=== PATIENT | female | born 1950 | race Two or more races ===

== ENCOUNTER 2025-04-24 22:03 | Emergency (ER) | payer OTHER ==
[~2025-04-24] VITALS: Ht 162.6 cm; Wt 50.0 kg
--- NOTE | 2025-04-24 22:21 | ED.PDOC ---
GI ASSESSMENT HPI Comments [facility] since then, she has not been compliant with her pain control, but reports abdominal pain. pt was seen at [facility] yesterday and told everything was ok. she has been screaming at her home all day and calling 911. daughter is requesting for placement i called the daughter, Celina Montero at [phone] who informs me [facility] at [place] last week, on 04/10, with final result showing no cancer. she then went to [facility] twice, then [facility] and all said nothing was found, she reports pt is out of gabapentin she has been complain of pain, she now feelsa she cant care for her and is requesting placement Time Seen by MD: 22:04 Reviewed Notes: Nurses Notes, Turner And Former Automatic Notes, Medications, Allergies Allergies: Coded Allergies: NO KNOWN ALLERGIES (Unverified , 04/24/25) Information Source: Patient, Relative (Child), Emergency Med Personnel Mode of Arrival: EMS Timing: Days Duration: Since onset Quality: Cramping Vomitus: None Past Medical History PAST MEDICAL HISTORY: PUD Past Medical History (Other): neuropathy, bipolar, possible uterine cancer Surgical History: Hysterectomy KILN FEEDER History: No Pertinent KILN FEEDER History Family History Family History: Reviewed,noncontributory to illness, No family hx of Cancer, No family hx of DM, No family hx of Heart ayaka, No family hx of HTN, No family hx ofKidney ayaka, No family hx of Liver ayaka, No family hx of Lung ayaka, No family hx of Stroke Social History Smoker: Non-Smoker Alcohol: Denies ETOH Use Drugs: Denies Drug Use Constitutional: denies: chills, diaphoresis, fatigue, fever, malaise, sweats, weakness, others EENTM: denies: blurred vision, double vision, ear bleeding, ear discharge, ear drainage, ear pain, ear ringing, eye pain, eye redness, hearing loss, mouth pain, mouth swelling, nasal discharge, nose bleeding, nose congestion, nose pain, photophobia, tearing, throat pain, throat swelling, voice changes, others Respiratory: denies: cough, hemoptysis, orthopnea, SOB at rest, shortness of breath, SOB with excertion, stridor, wheezing, others Cardiovascular: denies: chest pain, dizzy spells, diaphoresis, Dyspnea on exertion, edema, irregular heart beat, left arm pain, lightheadedness, palpitat ions, PND, syncope, others Gastrointestinal: reports: abdominal pain; denies: abdomen distended, blood streaked bowels, constipated, diarrhea, dysphagia, difficulty swallowing, hematemesis, melena, nausea, poor appetite, poor fluid intake, rectal bleeding, rectal pain, vomiting, others Genitourinary: denies: abnormal vagina bleeding, burning, dyspareunia, dysuria, flank pain, frequency, hematuria, incontinence, pain, , vagina discharge , urgency, others Neurological: denies: dizziness, fainting, headache, left sided numbness, left sided weakness, numbness, paresthesia, pre-existing deficit, right sided numbness, right sided weakness, seizure, speech problems, tingling, tremors, weakness, others Musculoskeletal: denies: back pain, gout, joint pain, joint swelling, muscle pain, muscle stiffness, neck pain, others Integumetry: denies: bruises, change in color, change in hair/nails, dryness, laceration, lesions, lumps, rash, wounds, others Allergic/Immunocompromised: denies: Difficulty Healing, Frequent Infections, Hives, Itching, others Hematologic/Lymphatic: denies: anemia, blood clots, easy bleeding, easy bruising, swollen glands, others All Other Systems: Reviewed and Negative Physical Exam General Appearance: No Apparent Distress, Normal HEENT: Normal ENT Inspection, Pharynx Normal, TMs Normal Neck: Full Range of Motion, Non-Tender, Normal, Normal Inspection Respiratory: Chest Non-Tender, Lungs Clear, No Accessory Muscle Use, No Respiratory Distress, Normal Breath Sounds Cardiovascular: No Edema, No JVD, No Murmur, No Gallop, Normal Peripheral Pulses, Regular Rate/Rhythm Breast Exam: Deferred Gastrointestinal: Diffuse, No Organomegaly, No Pulsatile Mass, Normal Bowel Sounds, Soft, Tenderness Genitalia: Deferred Pelvic: Deferred Rectal: Deferred Extremities: No calf tenderness, Normal capillary refill, Normal inspection, Normal range of motion, Non-tender, No pedal edema Musculoskeletal : Apperance: Normal Neurologic: Alert, ceramic worker 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 Was a procedure done?: No GI differential Dx Differential Diagnosis: Bowel Obstruction, Constipation, Gastritis/PUD, Gastroenteritis, GI hemorrhage, Hernia, Inflammatory BD, Ischemic Bowel, Pancreatitis, Trauma intraabdominal, Dehydration, Electrolyte Imbalance, Impaction, Mass, Stress Ulcer, Other (post op infection and other complications) X-Ray, Labs, Meds, VS Vital Signs Date Time Temp Pulse Resp B/P (MAP) Pulse Ox O2 Delivery O2 Flow Rate FiO2 04/25/25 00:27 74 22 150/79 04/25/25 00:10 71 16 99 Room Air* 0 21 04/25/25 00:10 98.7 71 16 150/79 (102) 99 98.7 04/24/25 22:13 98.6 87 18 161/83 (109) 95 98.6 04/24/25 22:07 82 Lab Test 04/24/25 22:30 Range/Units White Blood Count 6.3 4.4-10.8 10^3/uL Red Blood Count 4.10 4.0-5.20 10^6/uL Hemoglobin 12.5 12.2-16.2 g/dL Hematocrit 37.5 36.0-46.0 % Mean Corpuscular Volume 91.7 80.0-100.0 fL Mean Corpuscular Hemoglobin 30.5 28.0-32.0 pg Mean Corpuscular Hemoglobin Concent 33.3 32.0-36.0 g/dL Red Cell Distribution Width 14.1 11.8-14.3 % Platelet Count 245 140-450 10^3/uL Mean Platelet Volume 9.9 6.9-10.8 fL Neutrophils (%) (Auto) 66.6 37.0-80.0 % Lymphocytes (%) (Auto) 25.4 10.0-50.0 % Monocytes (%) (Auto) 7.0 0.0-12.0 % Eosinophils (%) (Auto) 0.4 0.0-7.0 % Basophils (%) (Auto) 0.6 0.0-2.0 % Neutrophils # (Auto) 4.2 1.6-8.6 10 ^3/uL Lymphocytes # (Auto) 1.6 0.4-5.4 10 ^3/uL Monocytes # (Auto) 0.4 0-1.3 10 ^3/uL Eosinophils # (Auto) 0 0-0.8 10 ^3/uL Basophils # (Auto) 0 0-0.2 10 ^3/uL Nucleated Red Blood Cells 0.1 % Sodium Level 143 136-145 mmol/L Potassium Level 3.7 3.5-5.1 mmol/L Chloride Level 106 98-107 mmol/L Carbon Dioxide Level 26 20-31 mmol/L Anion Gap 11 5-15 Blood Urea Nitrogen 7 L 9-23 mg/dL Creatinine 0.57 0.550-1.02 mg/dL Glomerular Filtration Rate Calc 95 >90 mL/min BUN/Creatinine Ratio 12.3 10.0-20.0 Serum Glucose 127 H 74-106 mg/dL Calcium Level 9.2 8.7-10.4 mg/dL Total Bilirubin 0.6 0.2-1.0 mg/dL Aspartate Amino Transferase (AST) 20 <34 U/L Alanine Aminotransferase (ALT) 23 7-40 U/L Alkaline Phosphatase 80 46-116 U/L Total Protein 7.1 5.7-8.2 g/dL Albumin 4.3 3.2-4.8 g/dL Lipase 27 12-53 U/L Current Medications Medications (Trade) Dose Ordered Sig/Tracee Route Start Time Stop Time Status Last Admin Morphine Sulfate 2 mg ONCE ONCE IV 04/24/25 22:30 04/24/25 22:48 DC 04/25/25 00:27 Ondansetron HCl (Zofran) 4 mg ONCE ONCE IV 04/24/25 22:30 04/24/25 22:48 DC 04/25/25 00:27 Sodium Chloride 1,000 ml @ 75 mls/hr [id number] ONCE IV 04/24/25 22:30 04/25/25 11:49 04/25/25 00:27 Time of 1ST Reevaluation: 01:17 Reevaluation 1ST: Improved Patient Education/Counseling: Diagnosis, Treatment, Prognosis, Need For Follow Up Family Education/Counseling: Diagnosis, Treatment, Prognosis, Need For Follow Up Comments the workup dos not show any acute findings, specifically relating to the recent procedure. however, the daughter, who pt lives with is unable to care for her and is requesting for placement. i will admit her for evaluation for possible placement SEPSIS Sepsis Screen Physician Orders Electrocardigram (04/24/25 22:10) Ct Ab Pel Wo Con-No Oral Or Iv (04/24/25 22:20) Urinalysis (04/24/25 22:20) Sodium Chloride 0.9% (04/24/25 22:30) Vital Signs Date Time Temp Pulse Resp B/P (MAP) Pulse Ox O2 Delivery O2 Flow Rate FiO2 04/25/25 00:27 74 22 150/79 04/25/25 00:10 71 16 99 Room Air* 0 21 04/25/25 00:10 98.7 71 16 150/79 (102) 99 98.7 04/24/25 22:13 98.6 87 18 161/83 (109) 95 98.6 04/24/25 22:07 82 Laboratory Tests Test 04/24/25 22:30 White Blood Count 6.3 10^3/uL (4.4-10.8) Medications Medications Dose Ordered Sig/Tracee Route Start Time Stop Time Status Last Admin Dose Admin Morphine Sulfate 2 mg ONCE ONCE IV 04/24/25 22:30 04/24/25 22:48 DC 04/25/25 00:27 Ondansetron HCl 4 mg ONCE ONCE IV 04/24/25 22:30 04/24/25 22:48 DC 04/25/25 00:27 Sodium Chloride 1,000 ml @ 75 mls/hr [id number] ONCE IV 04/24/25 22:30 04/25/25 11:49 04/25/25 00:27 Departure 1 Departure Time of Disposition: 01:18 Impression: Primary Impression: Abdominal pain Qualified Codes: R10.84 - Generalized abdominal pain Additional Impressions: Confusion Requires residential aged care placement Disposition: ADMITTED INPATIENT Admit to: Med Surg Condition: Stable Discharged With: Self, Relative Critical Care Note Critical Care Time?: No Stability Stability form required: ADRIAN Helms MD Apr 24, 2025 22:21
[2025-04-24 22:39] LABS: Basophils # (auto) 0 10 ^3/uL (0-0.2); Basophils % (auto) 0.6 % (0.0-2.0); Eosinophils # (auto) 0 10 ^3/uL (0-0.8); Eosinophils % (auto) 0.4 % (0.0-7.0); Hematocrit 37.5 % (36.0-46.0); Hemoglobin 12.5 g/dL (12.2-16.2); Lymphocytes # (auto) 1.6 10 ^3/uL (0.4-5.4); Lymphocytes % (auto) 25.4 % (10.0-50.0); Mean Corpuscular Hemoglobin 30.5 pg (28.0-32.0); Mean Corpuscular Hgb Conc. 33.3 g/dL (32.0-36.0); Mean Corpuscular Volume 91.7 fL (80.0-100.0); Monocytes # (auto) 0.4 10 ^3/uL (0-1.3); Neutrophils # (auto) 4.2 10 ^3/uL (1.6-8.6); Neutrophils % (auto) 66.6 % (37.0-80.0); Nucleated Red Blood Cells % 0.1 %; Platelet Count (auto) 245 10^3/uL (140-450); Red Cell Distribution Width 14.1 % (11.8-14.3); White Blood Cell 6.3 10^3/uL (4.4-10.8)
[2025-04-24 22:57] LABS: Alanine Aminotransferase 23 U/L (7-40); Alkaline Phosphatase 80 U/L (46-116); Aspartate Aminotransferase 20 U/L (<34); Calcium 9.2 mg/dL (8.7-10.4); Carbon Dioxide 26 mmol/L (20-31); Chloride 106 mmol/L (98-107); Lipase 27 U/L (12-53); Potassium 3.7 mmol/L (3.5-5.1)
[2025-04-24 22:58] LABS: Albumin 4.3 g/dL (3.2-4.8); Anion Gap 11 (5-15); BUN/Creatinine Ratio 12.3 (10.0-20.0); Bilirubin, Total 0.6 mg/dL (0.2-1.0); Sodium 143 mmol/L (136-145); Total Protein 7.1 g/dL (5.7-8.2)
[2025-04-24 23:11] LABS: Blood Urea Nitrogen 7 mg/dL (9-23); Glucose 127 mg/dL (74-106)
[2025-04-25 00:10] VITALS: PULSE 71; RESP 16; O2SAT 99
--- NOTE | 2025-04-25 00:17 | DVH ---
Exam: CT CT AB PEL WO CON-NO ORAL OR IV History: abdominal pain, post hysterectomy for possible cancer Comparison Study: None Technique: Multidetector spiral CT of the abdomen was performed from lung bases to pubic symphysis. I maging was performed without IV contrast. Axial, coronal and sagittal multiplanar reformats were obta ined from the axial data set by the technologist. Radiation Dose : 1. Abdomen/Pelvis: CTDIvol 14.22 mGy, DLP 709.14 mGy*cm. Findings: Evaluation of solid organs is limited due to lack of intravenous contrast use. Lung Bases: No acute or significant lung base finding. Normal heart size. No pleural or pericardial effusion. Liver: The liver is normal in size. No focal lesions. Gallbladder and Biliary Tree: Unremarkable Spleen: Unremarkable Pancreas: The pancreas is grossly normal in appearance. Adrenal Glands: Unremarkable Kidneys: Kidneys are grossly normal without calculi or hydronephrosis. 2.0 cm left inferior pole angela l cortical cyst. Bladder: Grossly unremarkable for degree of distention. Bowel: The stomach is grossly normal in appearance. Small bowel and colon are normal in caliber and d istribution. The appendix is normal. Ascites: Absent Lymphadenopathy: No mesenteric, retroperitoneal or periportal lymphadenopathy. Abdominal Wall and Mesentery: Unremarkable. Vasculature: The visualized abdominal aorta is normal in size and caliber. Evaluation of abdominal a nd pelvic vessels is limited due to lack of intravenous contrast. Pelvic Organs: Unremarkable, status post hysterectomy. Musculoskeletal: No aggressive focal bony lesions, acute fractures or dislocation. IMPRESSION: 1. No acute abdominal or pelvic findings. Radiation optimization: All CT scans at this facility use at least one of these dose optimization cat hniques: automated exposure control mA and/or kV adjustment per patient size (includes targeted exam s where dose is matched to clinical indication) or iterative reconstruction.
[2025-04-25] MEDS: ONDANSETRON HCL 4 MG/2 ML VIAL IV ONE (00:27)
[2025-04-25] MEDS: SODIUM CHLORIDE 0.9% 1,000 ML IV ONE (00:27)
[2025-04-25] MEDS: MORPHINE SULFATE INJ 2 MG/ml SYRG IV ONE (00:27)
[2025-04-25] MEDS: GABAPENTIN 300 MG CAP PO ONE (01:41)
--- NOTE | 2025-04-25 07:03 | ECG ---
[facility] Test Date: 2025-04-24 Test Time: 22:07:28 Pat Name: JAKE SEGUNDO Department: ED Room: Gender: F Housing Grant Analyst: RD : 1950 Requested By: ADRIAN DUFF Order Number: [id number] Reading MD: Ramin Alcocer Measurements Intervals [place] Rate: 82 P: 68 [place]: 127 QRS: 11 QRSD: 116 T: 47 QT: 382 QTc: 446 Interpretive Statements Sinus rhythm Nonspecific intraventricular conduction delay Baseline wander in lead(s) V3 Electronically Signed On 04-30-2025 9:36:42 PDT by Ramin Alcocer Please click the below link to view image of tracing.
[2025-04-25 07:30] VITALS: PULSE 55; RESP 12; O2SAT 99
[2025-04-25 08:10] VITALS: BP 122/85; PULSE 78; RESP 16; TEMP 97.1; O2SAT 97
== END 2025-04-25 08:29 | disposition short-term general hospital (02) ==
LOC: EDBD 22:03 → ER 22:03
DX: R10.84 Generalized abdominal pain (principal); R41.0 Disorientation, unspecified; Z87.11 Personal history of peptic ulcer disease; Z90.710 Acquired absence of both cervix and uterus; Z87.898 Personal history of other specified conditions
CPT/HCPCS: 36415; 74176; 80053; 83690; 85025; 93005; 96361; 96374; 96375; 99285; J2270; J2405; J7030

== ENCOUNTER 2025-05-02 08:32 | Emergency (ER) | payer OTHER, MEDICAID ==
[~2025-05-02] VITALS: Ht 154.9 cm; Wt 75.0 kg
[2025-05-02 09:00] VITALS: PULSE 80; RESP 16; O2SAT 95
--- NOTE | 2025-05-02 09:17 | ED.PDOC ---
History of Present Illness HPI Comments 74-year-old female brought in by ambulance with prior medical history of PUD, neuropathy, bipolar, possible uterine cancer, Alzheimer's: Surgical history of hysterectomy and a chief complaint of ALOC. EMS reports that the patient was recently at [facility] 1 week ago for a UTI. Daughter called EMS today due from the patient being generally weak. Patient is A&O x4. Denies pain during urination, chills, fever, N/V/D, SOB, CP. No other associated symptoms, modifiers, recent injuries or sick contacts present at this time. Chief Complaint: Dizziness Time Seen by MD: 09:15 Reviewed Notes: Nurses Notes, Diamond Cutter Notes, Medications, Allergies Allergies: Coded Allergies: NO KNOWN ALLERGIES (Unverified , 04/24/25) Information Source: Patient, Emergency Med Personnel Mode of Arrival: EMS Severity: Moderate Timing: Hours Duration: Since onset, Hours Prehospital treatment: None Past Medical History PAST MEDICAL HISTORY: Alzheimer, PUD Past Medical History (Other): Neuropathy, bipolar, possible uterine cancer Surgical History: Hysterectomy PICKER FEEDER History: No Pertinent PICKER FEEDER History Family History Family History: Reviewed,noncontributory to illness, Unknown Social History Smoker: Non-Smoker Alcohol: Denies ETOH Use Drugs: Denies Drug Use Lives In: Home Constitutional: reports: weakness; denies: chills, diaphoresis, fatigue, fever, malaise, sweats, others EENTM: denies: blurred vision, double vision, ear bleeding, ear discharge, ear drainage, ear pain, ear ringing, eye pain, eye redness, hearing loss, mouth pain, mouth swelling, nasal discharge, nose bleeding, nose congestion, nose pain, photophobia, tearing, throat pain, throat swelling, voice changes, others Respiratory: denies: cough, hemoptysis, orthopnea, SOB at rest, shortness of breath, SOB with excertion, stridor, wheezing, others Cardiovascular: denies: chest pain, dizzy spells, diaphoresis, Dyspnea on exertion, edema, irregular heart beat, left arm pain, lightheadedness, palpitations, PND, syncope, others Gastrointestinal: denies: abdomen distended, abdominal pain, blood streaked bowels, constipated, diarrhea, dysphagia, difficulty swallowing, hematemesis, melena, nausea, poor appetite, poor fluid intake, rectal bleeding, rectal pain, vomiting, others Genitourinary: denies: abnormal vagina bleeding, burning, dyspareunia, dysuria, flank pain, frequency, hematuria, incontinence, pain, , vagina discharge, urgency, others Neurological: denies: dizziness, fainting, headache, left sided numbness, left sided weakness, numbness, paresthesia, pre-existing deficit, right sided numbness, right sided weakness, seizure, speech problems, tingling, tremors, weakness, others Musculoskeletal: denies: back pain, gout, joint pain, joint swelling, muscle pain, muscle stiffness, neck pain, others Integumetry: denies: bruises, change in color, change in hair/nails, dryness, laceration, lesions, lumps, rash, wounds, others Allergic/Immunocompromised: denies: Difficulty Healing, Frequent Infections, Hives, Itching, others Hematologic/Lymphatic: denies: anemia, blood clots, easy bleeding, easy bruising, swollen glands, others Endocrine: denies: excessive hunger, excessive sweating, excessive thirst, excessive urination, flushing, intolerance to cold, intolerance to heat, unexplained weight gain, unexplained weight loss, others Psychiatric: denies: anxiety, bipolar disorder, depression, hopeless, panic disorder, schizophrenia, sleepless, suicidal, others All Other Systems: Reviewed and Negative Physical Exam General Appearance: Moderate Distress, Normal HEENT: Normal ENT Inspection, Pharynx Normal, TMs Normal Neck: Full Range of Motion, Non-Tender, Normal, Normal Inspection Respiratory: Chest Non-Tender, Lungs Clear, No Accessory Muscle Use, No Respiratory Distress, Normal Breath Sounds Cardiovascular: No Edema, No JVD, No Murmur, No Gallop, Normal Peripheral Pulses, Regular Rate/Rhythm Breast Exam: Deferred Gastrointestinal: No Organomegaly, Non Tender, No Pulsatile Mass, Normal Bowel Sounds, Soft Genitalia: Deferred Pelvic: Deferred Rectal: Deferred Extremities: No calf tenderness, Normal capillary refill, Normal inspection, Normal range of motion, Non-tender, No pedal edema Musculoskeletal : Apperance: Normal Neurologic: Alert, curing press maintainer II-XII nml as Tested, No Motor Deficits, Normal Affect, Normal Mood, No Sensory Deficits Cerebellar Function: NOT DONE Reflexes: NOT DONE Skin: Dry, Normal Color, Warm Peripheral Pulses: 3+ Radial (R), 3+ Radial (L) Lymphatic: No Adenopathy Was a procedure done? Was a procedure done?: No Differential Dx Considerations may include: Dehydration Electrolyte imbalance X-Ray, Labs, Meds, VS Vital Signs Date Time Temp Pulse Resp B/P (MAP) Pulse Ox O2 Delivery O2 Flow Rate FiO2 05/02/25 08:41 98.8 124 18 120/76 (91) 94 98.8 Patient alert. Answering questions. Vitals stable. Blood pressure within normal limits. No fever. No sign of any sepsis. Establish intravenous access. Was given fluids pain Continue to monitor. Time of 1ST Reevaluation: 09:45 Reevaluation 1ST: Unchanged Patient Education/Counseling: Diagnosis, Treatment, Prognosis Family Education/Counseling: No Family Present SEPSIS Sepsis Screen Date sepsis recognized/suspect: May 02, 2025 Time Sepsis recognized/suspect: 837 Recent Procedure: No On Antibiotic Therapy: No Respiratory Rate >20: No Heart Rate >90: Yes Temp<36 C (96.8 F) or >38.3 C: No SBP <90 or MAP <65 mmHG: No New Acute Mental Status Change: No Is the patient on CPAP, BIPAP,: No Physician Orders Complete Blood Count (05/02/25 09:22) Urinalysis (05/02/25 09:22) Basic Metabolic Panel (05/02/25 09:22) 1 Liter Bolus Of 0.9% Ns (05/02/25 09:30) Vital Signs Date Time Temp Pulse Resp B/P (MAP) Pulse Ox O2 Delivery O2 Flow Rate FiO2 05/02/25 08:41 98.8 124 18 120/76 (91) 94 98.8 Departure 1 Departure Time of Disposition: 09:24 Impression: Primary Impression: Sepsis due to urinary tract infection Disposition: 02 [facility]M [facility] Admit to: Med Surg Condition: Guarded Critical Care Note Critical Care Time?: No Stability Stability form required: No I personally scribed for PATRICA MCKEON MD ([email or web address]) on 05/02/25 at 09:17. Electronically submitted by Davy Kwon ([email or web address]). PATRICA MCKEON MD May 02, 2025 09:17
[2025-05-02] MEDS: SODIUM CHLORIDE 0.9% 1,000 ML IV ONE (09:30)
[2025-05-02 09:49] LABS: Hematocrit 40.5 % (36.0-46.0); Hemoglobin 13.4 g/dL (12.2-16.2); Mean Corpuscular Hemoglobin 30.5 pg (28.0-32.0); Mean Corpuscular Volume 92.3 fL (80.0-100.0); Nucleated Red Blood Cells % 0.1 %
[2025-05-02 09:57] LABS: Chloride 106 mmol/L (98-107); Potassium 4.0 mmol/L (3.5-5.1); Sodium 142 mmol/L (136-145)
[2025-05-02 09:58] LABS: Anion Gap 9 (5-15); Calcium 9.9 mg/dL (8.7-10.4); Carbon Dioxide 27 mmol/L (20-31)
[2025-05-02 10:03] LABS: BUN/Creatinine Ratio 13.1 (10.0-20.0)
[2025-05-02 10:04] LABS: Blood Urea Nitrogen 8 mg/dL (9-23); Glucose 145 mg/dL (74-106)
--- NOTE | 2025-05-02 10:17 | ECG ---
[facility] Test Date: 2025-05-02 Test Time: 08:40:58 Pat Name: JAKE SEGUNDO Department: ED Room: Gender: F Shed Boss: : 1950 Requested By: PATRICA MCKEON Order Number: [id number] Reading MD: Ramin Alcocer Measurements Intervals [place] Rate: 94 P: 85 [place]: 163 QRS: 28 QRSD: 106 T: 57 QT: 364 QTc: 456 Interpretive Statements Sinus rhythm Consider left atrial enlargement Nonspecific T abnormalities, lateral leads Artifact in lead(s) I,aVR,aVL,V1,V2,V3,V4,V5,V6 Electronically Signed On 05-06-2025 18:52:58 PDT by Ramin Alcocer Please click the below link to view image of tracing.
[2025-05-02] MEDS: ACETAMINOPHEN 325 MG TAB PO ONE (11:11)
[2025-05-02 11:23] VITALS: BP 148/82; PULSE 75; RESP 20; TEMP 98.6; O2SAT 99
== END 2025-05-02 11:38 | disposition short-term general hospital (02) ==
LOC: EDBD 08:32 → EDUNIT# 08:32 → ER 08:32
DX: A41.9 Sepsis, unspecified organism (principal); N39.0 Urinary tract infection, site not specified; G30.9 Alzheimer's disease, unspecified; F31.9 Bipolar disorder, unspecified; F02.83 Dementia in other diseases classified elsewhere, unspecified severity, with mood disturbance; Z87.11 Personal history of peptic ulcer disease; Z90.710 Acquired absence of both cervix and uterus; Z87.440 Personal history of urinary (tract) infections
CPT/HCPCS: 36415; 80048; 82947; 85025; 93005; 96360; 99285; J7030; 82962

== ENCOUNTER 2025-05-20 05:01 | Emergency (ER) | payer OTHER, MEDICAID ==
[~2025-05-20] VITALS: Ht 157.5 cm; Wt 70.5 kg
[2025-05-20 05:45] VITALS: PULSE 68; RESP 18; O2SAT 97
--- NOTE | 2025-05-20 06:31 | ED.PDOC ---
Back pain HPI HPI Comments This is a 74 year old female JENNA presenting to the ED with chief complaint of back pain. Patient reports that she has been experiencing lower back pain that radiates to her bilateral thighs for the past week. EMS relays that the patient was recently diagnosed with a UTI a week ago according to family, however, patient has refused to take her at home antibiotics to treat it. Patient states she does not normally walk on her own and is usually in a wheelchair. Patient denies any SOB, chest pain, numbness, weakness, dizziness, or abdominal pain. Chief Complaint: Back Pain Time Seen by MD: 06:27 Reviewed Notes: Nurses Notes, Electric Knife Operator Notes, Medications, Allergies Allergies: Coded Allergies: NO KNOWN ALLERGIES (Unverified , 04/24/25) Information Source: Patient, Emergency Med Personnel Mode of Arrival: EMS Timing: Weeks Duration: Since onset Location of Back pain: (B) Lower back Radiates to: Anterior: (B) Thigh Severity: Moderate Prehospital treatment: None Quality: Aching Onset: Spontaneous, Other History of: Chronic Back Pain, UTI Modifying Factors: Nothing Past Medical History PAST MEDICAL HISTORY: Alzheimer, Dementia, DM, PUD, Schizophrenia, UTI'S Past Medical History (Other): Bipolar Surgical History: Hysterectomy AIRPLANE CAPTAIN History: No Pertinent AIRPLANE CAPTAIN History Family History Family History: Reviewed,noncontributory to illness, Unknown Social History Smoker: Non-Smoker Alcohol: Denies ETOH Use Drugs: Denies Drug Use Lives In: Home Constitutional: denies: chills, diaphoresis, fatigue, fever, malaise, sweats, weakness, others EENTM: denies: blurred vision, double vision, ear bleeding, ear discharge, ear drainage, ear pain, ear ringing, eye pain, eye redness, hearing loss, mouth pain, mouth swelling, nasal discharge, nose bleeding, nose congestion, nose pain, photophobia, tearing, throat pain, throat swelling, voice changes, others Respiratory: denies: cough, hemoptysis, orthopnea, SOB at rest, shortness of breath, SOB with excertion, stridor, wheezing, others Cardiovascular: denies: chest pain, dizzy spells, diaphoresis, Dyspnea on exertion, edema, irregular heart beat, left arm pain, lightheadedness, palpitations, PND, syncope, others Gastrointestinal: denies: abdomen distended, abdominal pain, blood streaked bowels, constipated, diarrhea, dysphagia, difficulty swallowing, hematemesis, melena, nausea, poor appetite, poor fluid intake, rectal bleeding, rectal pain, vomiting, others Genitourinary: denies: abnormal vagina bleeding, burning, dyspareunia, dysuria, flank pain, frequency, hematuria, incontinence, pain, , vagina discharge, urgency, others Neurological: denies: dizziness, fainting, headache, left sided numbness, left sided weakness, numbness, paresthesia, pre-existing deficit, right sided numbness, right sided weakness, seizure, speech problems, tingling, tremors, weakness, others Musculoskeletal: reports: back pain, others (Leg pain); denies: gout, joint pain, joint swelling, muscle pain, muscle stiffness, neck pain Integumetry: denies: bruises, change in color, change in hair/nails, dryness, laceration, lesions, lumps, rash, wounds, others Allergic/Immunocompromised: denies: Difficulty Healing, Frequent Infections, Hives, Itching, others Hematologic/Lymphatic: denies: anemia, blood clots, easy bleeding, easy bruisin g, swollen glands, others Endocrine: denies: excessive hunger, excessive sweating, excessive thirst, excessive urination, flushing, intolerance to cold, intolerance to heat, unexplained weight gain, unexplained weight loss, others Psychiatric: denies: anxiety, bipolar disorder, depression, hopeless, panic disorder, schizophrenia, sleepless, suicidal, others All Other Systems: Reviewed and Negative Physical Exam General Appearance: Moderate Distress, Normal HEENT: Normal ENT Inspection, Pharynx Normal, TMs Normal Neck: Full Range of Motion, Non-Tender, Normal, Normal Inspection Respiratory: Chest Non-Tender, Lungs Clear, No Accessory Muscle Use, No Respiratory Distress, Normal Breath Sounds Cardiovascular: No Edema, No JVD, No Murmur, No Gallop, Normal Peripheral Pulses, Regular Rate/Rhythm Breast Exam: Deferred Gastrointestinal: No Organomegaly, Non Tender, No Pulsatile Mass, Normal Bowel Sounds, Soft Genitalia: Deferred Pelvic: Deferred Rectal: Deferred Extremities: No calf tenderness, Normal capillary refill, Normal inspection, Normal range of motion, Non-tender, No pedal edema Musculoskeletal : Apperance: Normal Neurologic: Alert, gas system operator II-XII nml as Tested, No Motor Deficits, Normal Affect, Normal Mood, No Sensory Deficits Cerebellar Function: NOT DONE Reflexes: NOT DONE Skin: Dry, Normal Color, Warm Peripheral Pulses: 3+ Radial (R), 3+ Radial (L) Lymphatic: No Adenopathy Was a procedure done? Was a procedure done?: No Back Pain Differential Dx Differential Diagnosis: Musculoskeletal Pain, Other (UTI) X-Ray, Labs, Meds, VS Vital Signs Date Time Temp Pulse Resp B/P (MAP) Pulse Ox O2 Delivery O2 Flow Rate FiO2 05/20/25 07:06 97.6 97.6 05/20/25 05:45 68 18 152/71 (98) 68 05/20/25 05:45 68 18 97 Room Air* 0 21 05/20/25 05:09 98.6 83 18 166/80 (108) 98 98.6 Lab Test 05/20/25 06:54 Range/Units Sodium Level Pending Potassium Level Pending Chloride Level Pending Carbon Dioxide Level Pending Anion Gap Pending Blood Urea Nitrogen Pending Creatinine Pending Glomerular Filtration Rate Calc Pending BUN/Creatinine Ratio Pending Serum Glucose Pending Calcium Level Pending Troponin I High Sensitivity Pending Patient alert. Complaining of back pain. Possible failure to thrive. Vitals stable. She does not ambulate. Blood pressure elevated. Possibly will need placement. Was given pain medication. Was given clonidine. Explained to the family. Continue monitoring. Time of 1ST Reevaluation: 07:27 Reevaluation 1ST: Unchanged Patient Education/Counseling: Diagnosis, Treatment Family Education/Counseling: No Family Present Additional Information Previous visits reviewed: 05/02/25 for dizziness The following tests were ordered, and results were reviewed by me: CBC, BMP, UA, Troponin, L-Spine XR Additional Information was gathered from interviewing the following independent historians: EMS I reviewed and agreed with the following test results read by other providers: L-Spine XR I discussed treatment and results with medical personnel and: patient Comprehensive systems review obtained and negative except for what is stated in the HPI. SEPSIS Sepsis Screen Date sepsis recognized/suspect: May 20, 2025 Time Sepsis recognized/suspect: 505 Recent Procedure: No On Antibiotic Therapy: No Respiratory Rate >20: No Heart Rate >90: No Temp<36 C (96.8 F) or >38.3 C: No SBP <90 or MAP <65 mmHG: No New Acute Mental Status Change: No Is the patient on CPAP, BIPAP,: No Physician Orders Troponin-I Hs (05/20/25 06:32) Complete Blood Count (05/20/25 06:32) Urinalysis (05/20/25 06:32) Basic Metabolic Panel (05/20/25 06:32) Sodium Chloride 0.9% (05/20/25 06:45) Lumbar Spine 4+ View (05/20/25 06:32) Vital Signs Date Time Temp Pulse Resp B/P (MAP) Pulse Ox O2 Delivery O2 Flow Rate FiO2 05/20/25 07:06 97.6 97.6 05/20/25 05:45 68 18 152/71 (98) 68 05/20/25 05:45 68 18 97 Room Air* 0 21 05/20/25 05:09 98.6 83 18 166/80 (108) 98 98.6 Departure 1 Departure Time of Disposition: 07:13 Impression: Primary Impression: Hypertensive urgency Additional Impression: Lumbar sprain Qualified Codes: S33.5XXA - Sprain of ligaments of lumbar spine, initial encounter Disposition: 01 HOME / SELF CARE / HOMELESS Condition: Good Discharged With: Self Critical Care Note Critical Care Time?: No Stability Stability form required: No Heart Score Heart Score: Heart Score Response (Comments) Value History N/A 0 EKG N/A 0 Age N/A 0 Risk Factors N/A 0 Troponin N/A 0 Total 0 I personally scribed for PATRICA MCKEON MD ([email or web address]) on 05/20/25 at 06:31. Electronically submitted by Crow Gabriel ([email or web address]). I personally scribed for PATRICA MCKEON MD ([email or web address]) on 05/20/25 at 06:46. Electronically submitted by Crow Gabriel ([email or web address]). PATRICA MCKEON MD May 20, 2025 06:31
[2025-05-20 07:30] VITALS: PULSE 72; RESP 16; O2SAT 97
[2025-05-20 07:56] LABS: Potassium 4.4 mmol/L (3.5-5.1); Sodium 143 mmol/L (136-145)
[2025-05-20 07:57] LABS: Anion Gap 7 (5-15); Calcium 9.9 mg/dL (8.7-10.4); Carbon Dioxide 28 mmol/L (20-31); Chloride 108 mmol/L (98-107)
[2025-05-20] MEDS: SODIUM CHLORIDE 0.9% 1,000 ML IV ONE (07:58)
[2025-05-20] MEDS: MORPHINE SULFATE INJ 2 MG/ml SYRG IV ONE (07:58)
[2025-05-20] MEDS: ONDANSETRON HCL 4 MG/2 ML VIAL IV ONE (07:59)
[2025-05-20 08:02] LABS: BUN/Creatinine Ratio 18.2 (10.0-20.0); Blood Urea Nitrogen 10 mg/dL (9-23); Glucose 106 mg/dL (74-106)
[2025-05-20 08:03] LABS: Hematocrit 41.4 % (36.0-46.0); Hemoglobin 13.7 g/dL (12.2-16.2); Mean Corpuscular Hemoglobin 31.1 pg (28.0-32.0); Mean Corpuscular Volume 93.9 fL (80.0-100.0); Nucleated Red Blood Cells % 0.4 %
--- NOTE | 2025-05-20 08:03 | DVH ---
EXAM: XR Lumbosacral Spine, 4 or 5 Views CLINICAL INDICATION: Pain TECHNIQUE: Frontal, lateral and bilateral oblique views of the lumbar spine. COMPARISON: No relevant prior studies available. FINDINGS: VERTEBRAE: Unremarkable. Normal alignment. No acute fracture. SACRUM/COCCYX: Unremarkable as visualized. No acute fracture. DISC SPACES: No acute findings. No significant narrowing. SOFT TISSUES: Unremarkable. IMPRESSION: No acute fracture.
[2025-05-20 13:05] VITALS: TEMP 97.7
[2025-05-20 21:00] VITALS: PULSE 78; RESP 18; O2SAT 98
[2025-05-20 21:45] VITALS: BP 144/89; PULSE 88; RESP 18; O2SAT 92
== END 2025-05-20 21:49 | disposition home or self-care (01) ==
LOC: ER 05:01 → EDBD 05:01 → ER 21:49
DX: S33.5XXA Sprain of ligaments of lumbar spine, initial encounter (principal); M79.651 Pain in right thigh; M79.652 Pain in left thigh; I16.0 Hypertensive urgency; E11.9 Type 2 diabetes mellitus without complications; F03.90 Unspecified dementia, unspecified severity, without behavioral disturbance, psychotic disturbance, mood disturbance, and anxiety; F20.9 Schizophrenia, unspecified; Z87.11 Personal history of peptic ulcer disease; Z87.440 Personal history of urinary (tract) infections; Z90.710 Acquired absence of both cervix and uterus; X58.XXXA Exposure to other specified factors, initial encounter; Y93.89 Activity, other specified; Y92.89 Other specified places as the place of occurrence of the external cause; Y99.8 Other external cause status
CPT/HCPCS: 36415; 72110; 80048; 82947; 84484; 85025

== ENCOUNTER 2025-06-11 00:29 | Emergency (ER) | payer OTHER, MEDICAID ==
[~2025-06-11] VITALS: Ht 157.5 cm; Wt 64.5 kg
[2025-06-11] MEDS: OXYCODONE W/ ACETAMINOPHEN 5/325MG TABLET PO ONE (00:45)
[2025-06-11] MEDS: NAPROXEN 500 MG TAB PO ONE (00:45)
--- NOTE | 2025-06-11 01:06 | ED.PDOC ---
History of Present Illness HPI Comments 74-year-old female who came to ER via EMS for upper extremity pain. Patient is wheelchair-bound. Does have history of Alzheimer, dementia, diabetes, bipolar and schizophrenia. Was said to be complaining of bilateral shoulder pain, and lower/ upper back pain from sitting in the wheelchair too long. REVIEW OF SYSTEMS: No fever, no chills, or fatigue HEENT: No sore throat, no earache, no congestion, no neck pain. Cardiac: No chest pain. No palpitations. Lungs: No shortness of breath, no cough. GI: No nausea, no vomiting, no diarrhea, no constipation, no abdominal pain : No dysuria, frequency, or urgency. No hematuria. Musculoskeletal: No joint pain , no joint swelling, no extremity edema. (+) bilateral shoulder pain, back pain Skin: No rash, no itching. Neuro: No headache, no dizziness, no weakness Physical exam General: Awake, alert and oriented. No acute distress. Skin: Skin in warm, dry and intact. Appropriate color for ethnicity. Nailbeds pink with no cyanosis. HEENT: The head is normocephalic and atraumatic. Conjunctivae are clear without exudates or hemorrhage. Sclera is non-icteric. EOM are intact. No signs of nystagmus. Eyelids are normal in appearance without swelling or lesions. Oral mucosa is pink and moist Neck: The neck is supple with normal range of motion. No JVD. Cardiac: Heart rate and rhythm are normal. No murmurs, gallops, or rubs are auscultated. Respiratory: No signs of respiratory distress. Lung sounds are clear in all lobes bilaterally without rales, rhonchi, or wheezes. Abdominal: Abdomen is soft, non-tender without distention. Bowel sounds are present and normoactive in all four quadrants. Extremities: Upper and lower extremities are atraumatic in appearance without deformity or edema. Neurological: The patient is awake, alert and oriented to person, place, and time with normal speech. Speech is clear. There is no facial asymmetry. Psychiatric: Appropriate mood and affect. Good judgement and insight. No visual or auditory hallucinations. Chief Complaint: Upper Extremity Time Seen by MD: 01:05 Reviewed Notes: Computer Field Technician Notes Allergies: Coded Allergies: NO KNOWN ALLERGIES (Unverified , 04/24/25) Information Source: Patient, Emergency Med Personnel Mode of Arrival: EMS Severity: Moderate Past Medical History PAST MEDICAL HISTORY: Alzheimer, Dementia, DM, PUD, Schizophrenia, UTI'S Past Medical History (Other): Bipolar Surgical History: Hysterectomy HAT IRONER History: No Pertinent HAT IRONER History Family History Family History: Reviewed,noncontributory to illness, Unknown Social History Smoker: Non-Smoker Alcohol: Denies ETOH Use Drugs: Denies Drug Use Lives In: Home Was a procedure done? Was a procedure done?: No Differential Dx Considerations may include: Musculoskeletal pain, dementia, back pain X-Ray, Labs, Meds, VS Vital Signs Date Time Temp Pulse Resp B/P (MAP) Pulse Ox O2 Delivery O2 Flow Rate FiO2 06/11/25 08:00 18 Room Air* 0 21 06/11/25 05:32 79 18 96 Room Air* 0 21 06/11/25 05:31 98.9 79 18 139/79 (99) 96 98.9 06/11/25 00:44 99.1 98 22 113/74 99 99.1 Lab Test 06/11/25 04:40 06/11/25 02:37 06/11/25 01:28 Range/Units Troponin I High Sensitivity 19 17 16 </=34 ng/L Current Medications Medications (Trade) Dose Ordered Sig/Tracee Route Start Time Stop Time Status Last Admin Pantoprazole Sodium (Protonix Tablet) 40 mg ONCE ONCE PO 06/11/25 16:15 06/11/25 16:16 DC 06/11/25 16:15 Time of 1ST Reevaluation: 01:05 Reevaluation 1ST: Unchanged Time of 2ND Reevaluation: 18:10 (This patient was seen and evaluated by Dr. aguilar earlier and has discharge the patient awaiting social service consult for placement and transportation. She told him that the patient is medically cleared.Patient has been in no acute distress here in the ED. patient daughter said that she can not come pickling drum operator the patient and she requested that the insurance arrange for transportation. We discovered that the patient is a [facility] patient. I contacted [facility].The case was discussed with the [facility] admitting team (HPI, physical exam, labs and diagnostic tests that were available at the time of disposition, ED course, treatment plan) on the phone. They agreed to arrange for transportation. Dr. Landeros) Patient Education/Counseling: Need For Follow Up Family Education/Counseling: No Family Present SEPSIS Sepsis Screen Date sepsis recognized/suspect: Jun 11, 2025 Time Sepsis recognized/suspect: 0038 Recent Procedure: No On Antibiotic Therapy: No Respiratory Rate >20: No Heart Rate >90: No Temp<36 C (96.8 F) or >38.3 C: No SBP <90 or MAP <65 mmHG: No New Acute Mental Status Change: No Is the patient on CPAP, BIPAP,: No Physician Orders Chest Xray 1 View (06/11/25 00:56) Electrocardigram (06/11/25 00:56) Complete Blood Count (06/11/25 17:34) Comprehensive Metabolic Panel (06/11/25 17:34) Vital Signs Date Time Temp Pulse Resp B/P (MAP) Pulse Ox O2 Delivery O2 Flow Rate FiO2 06/11/25 08:00 18 Room Air* 0 21 06/11/25 05:32 79 18 96 Room Air* 0 21 06/11/25 05:31 98.9 79 18 139/79 (99) 96 98.9 06/11/25 00:44 99.1 98 22 113/74 99 99.1 Medications Medications Dose Ordered Sig/Tracee Route Start Time Stop Time Status Last Admin Dose Admin Pantoprazole Sodium 40 mg ONCE ONCE PO 06/11/25 16:15 06/11/25 16:16 DC 06/11/25 16:15 Departure 1 Departure Time of Disposition: 05:33 Impression: Primary Impression: Bilateral shoulder pain Disposition: HOME / SELF CARE / HOMELESS Condition: Stable Additional Instructions: ED DISCHARGE INSTRUCTIONS Instructions: Please read all instructions provided in this packet carefully. Although you have been discharged from the Emergency Department, this does not mean that you have a "clean bill of health".No definitive diagnosis for your symptoms has been made today. It is possible that you are in the process of developing a serious illness. This is why you must return to the ED without fail if any new or worsening symptoms (especially if your symptoms include chest pain, trouble breathing, abdominal pain, fever, headache, confusion, trouble seeing, or trouble walking) It is also very important that you see a primary care provider (PCP) within the next 3-5 days to follow up. If you are unable to get an appointment, return to the ED for re-evaluation. CHEST PAIN EDUCATION There are many things that can cause chest pain. Some are not serious and will get better on their own in a few days. But some kinds of chest pain need more testing and treatment. Your doctor may have recommended a follow-up visit in the next few days. If you are not getting better, you may need more tests or treatment. Even though your doctor has released you, you still need to watch for any problems. The doctor carefully checked you, but sometimes problems can develop later. If you have new symptoms or if your symptoms do not get better, get medical care right away. If you have worse or different chest pain or pressure that lasts more than 5 minutes or you passed out (lost consciousness), call 911 or seek other emergency help right away. A medical visit is only one step in your treatment. Even if you feel better, you still need to do what your doctor recommends, such as going to all suggested follow-up appointments and taking medicines exactly as directed. This will help you recover and help prevent future problems. How can you care for yourself at home? Rest until you feel better. Take your medicine exactly as prescribed. Call your doctor if you think you are having a problem with your medicine. Do not drive after taking a prescription pain medicine. When should you call for help? Call 911 if: You passed out (lost consciousness). You have severe difficulty breathing. You have symptoms of a heart attack. These may include: Chest pain or pressure, or a strange feeling in your chest. Sweating. Shortness of breath. Nausea or vomiting. Pain, pressure, or a strange feeling in your back, neck, jaw, or upper belly or in one or both shoulders or arms. Lightheadedness or sudden weakness. A fast or irregular heartbeat. After you call 911, the liquefied natural gas operator may tell you to chew 1 adult-strength or 2 to 4 low-dose aspirin. Wait for an ambulance. Do not try to drive yourself. Call your doctor now or seek immediate medical care if: You have any trouble breathing. You have new or different chest pain. You are dizzy or lightheaded, or you feel like you may faint. Watch closely for changes in your health, and be sure to contact your doctor if you do not get better as expected. Current as of: May 27, 2024 Author: Jianshu Staff? Comments 74-year-old female who presents to the emergency department via EMS for bilateral upper extremity pain. Patient's symptoms improved during the ED observation. The patient denied any chest pain all in the ED. EKG, troponin, chest x-ray were negative. Patient felt stable for discharge home to follow up with primary care provider Critical Care Note Critical Care Time?: No Stability Stability form required: No Heart Score Heart Score: Heart Score Response (Comments) Value History N/A 0 EKG N/A 0 Age N/A 0 Risk Factors N/A 0 Troponin N/A 0 Total 0 I personally scribed for ANGEL AGUILAR MD ([email or web address]) on 06/11/25 at 01:06. Electronically submitted by Daniel Tang ([email or web address]). ANGEL AGUILAR MD Jun 11, 2025 01:06 HORACIO GRIFFIN DO Jun 11, 2025 18:12
--- NOTE | 2025-06-11 04:07 | DVH ---
CHEST RADIOGRAPH Indication: Bilateral shoulder pain Technique: Single frontal view of the chest was obtained COMPARISON: None FINDINGS: Lines and Tubes: None Lungs: Clear Pleura: No effusion. No pneumothorax. Cardiomediastinal contours: Unremarkable Bones: Unremarkable IMPRESSION: 1. No acute disease.
[2025-06-11 05:32] VITALS: PULSE 79; RESP 18; O2SAT 96
[2025-06-11 08:00] VITALS: RESP 18
[2025-06-11] MEDS: PANTOPRAZOLE 40 MG TAB PO ONE (16:15)
[2025-06-11 19:01] LABS: Hematocrit 44.4 % (36.0-46.0); Hemoglobin 15.1 g/dL (12.2-16.2); Mean Corpuscular Hemoglobin 30.9 pg (28.0-32.0); Mean Corpuscular Volume 90.9 fL (80.0-100.0); Nucleated Red Blood Cells % 0.1 %
[2025-06-11 19:12] LABS: Alanine Aminotransferase 13 U/L (7-40); Alkaline Phosphatase 91 U/L (46-116); Anion Gap 10 (5-15); BUN/Creatinine Ratio 23.9 (10.0-20.0); Blood Urea Nitrogen 11 mg/dL (9-23); Calcium 9.6 mg/dL (8.7-10.4); Carbon Dioxide 26 mmol/L (20-31); Chloride 106 mmol/L (98-107); Glucose 89 mg/dL (74-106); Potassium 3.6 mmol/L (3.5-5.1); Sodium 142 mmol/L (136-145); Total Protein 7.8 g/dL (5.7-8.2)
[2025-06-11 19:13] LABS: Albumin 4.8 g/dL (3.2-4.8); Bilirubin, Total 0.6 mg/dL (0.2-1.0)
[2025-06-11 20:38] VITALS: BP 144/64; PULSE 64; RESP 18; TEMP 98.1; O2SAT 97
--- NOTE | 2025-06-14 10:28 | ECG ---
[facility] Test Date: 2025-06-12 Test Time: 00:38:08 Pat Name: JAKE SEGUNDO Department: ED Room: Gender: F Crosscutter: YESSY : 1950 Requested By: ANGEL AGUILAR Order Number: [id number] Reading MD: Ramin Alcocer Measurements Intervals [place] Rate: 71 P: 69 PA: 119 QRS: 3 QRSD: 105 T: 45 QT: 405 QTc: 441 Interpretive Statements Sinus rhythm Borderline short PA interval Abnormal R-wave progression, early transition Probable left ventricular hypertrophy Electronically Signed On 06-14-2025 22:52:34 PDT by Ramin Alcocer Please click the below link to view image of tracing.
== END 2025-06-11 00:44 | disposition home or self-care (01) ==
LOC: ER 00:29 → EDBD 00:29 → ER 00:44
DX: M25.511 Pain in right shoulder (principal); M25.512 Pain in left shoulder; E11.9 Type 2 diabetes mellitus without complications; F02.83 Dementia in other diseases classified elsewhere, unspecified severity, with mood disturbance; F20.9 Schizophrenia, unspecified; F31.9 Bipolar disorder, unspecified; G30.9 Alzheimer's disease, unspecified; Z90.710 Acquired absence of both cervix and uterus; Z87.440 Personal history of urinary (tract) infections; Z87.11 Personal history of peptic ulcer disease
CPT/HCPCS: 36415; 71045; 80053; 84484; 85025; 93005

== ENCOUNTER 2025-06-11 23:25 | Emergency (ER) | payer OTHER, MEDICAID ==
[~2025-06-11] VITALS: Ht 165.1 cm; Wt 54.5 kg
--- NOTE | 2025-06-11 23:46 | ED.PDOC ---
Roberto. trauma (HPI) HPI Comments 74-year-old female who came to ER via EMS for fall injury. Patient is wheelchair-bound. Does have history of Alzheimer, dementia, diabetes, bipolar and schizophrenia. Was seen here yesterday for bilateral shoulder pain, transport arranged, and was discharged few hours ago. At home patient ap parently fell from her bed as she attempted to open the window. Noted laceration at the occipital area. Denies any loss of consciousness. 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 Allergies: Coded Allergies: NO KNOWN ALLERGIES (Unverified , 04/24/25) Information Source: Emergency Med Personnel Mode of Arrival: EMS Severity: Moderate Timing: Minutes Duration: Since onset Location: Head Location of laceration: Head (occipital) Mechanism: Fall Past Medical History PAST MEDICAL HISTORY: Alzheimer, Dementia, DM, PUD, Schizophrenia, UTI'S Past Medical History (Other): Patient is wheelchair-bound Surgical History: Hysterectomy FINISHED CLOTH EXAMINER History: No Pertinent FINISHED CLOTH EXAMINER History Family History Family History: Reviewed,noncontributory to illness, Unknown Social History Smoker: Non-Smoker Alcohol: Denies ETOH Use Drugs: Denies Drug Use Lives In: Home Unable to Obtain due to: Altered Mental Status, Dementia Physical Exam General Appearance: No Apparent Distress, Normal HEENT: Normal ENT Inspection, Pharynx Normal, TMs Normal Neck: Full Range of Motion, Non-Tender, Normal, Normal Inspection Respiratory: Chest Non-Tender, Lungs Clear, No Accessory Muscle Use, No Respiratory Distress, Normal Breath Sounds Cardiovascular: No Edema, No JVD, No Murmur, No Gallop, Normal Peripheral Pulses, Regular Rate/Rhythm Breast Exam: Deferred Gastrointestinal: No Organomegaly, Non Tender, No Pulsatile Mass, Normal Bowel Sounds, Soft Genitalia: Deferred Pelvic: Deferred Rectal: Deferred Extremities: No calf tenderness, Normal capillary refill, Normal inspection, Normal range of motion, Non-tender, No pedal edema Musculoskeletal : Apperance: Normal Neurologic: Alert, transport aide II-XII nml as Tested, No Motor Deficits, Normal Affect, Normal Mood, No Sensory Deficits Cerebellar Function: Normal Reflexes: Normal Skin: Dry, Lacerations (Occipital area), Normal Color, Warm Lymphatic: No Adenopathy Was a procedure done? Was a procedure done?: Yes Sedation Sedation?: No Laceration Repair : Location Occipital area Length 3.5 cm Anesthetic: Nothing Laceration Repair Prep: Saline, Betadine Laceration Repair Wound Comple: epidermis/dermis repair Laceration Repair: Skin, SQ, Gamaliel (4) Informed consent obtained: Yes Risks, benefits, and alternati: Yes Differential Diagnosis Multiple Trauma: Closed Head Injury, Laceration X-Ray, Labs, Meds, VS Vital Signs Date Time Temp Pulse Resp B/P (MAP) Pulse Ox O2 Delivery O2 Flow Rate FiO2 06/12/25 00:39 71 06/12/25 00:10 98 Room Air* 0 21 06/12/25 00:10 98.0 71 18 164/89 (114) 98.0 06/11/25 23:30 99.1 104 18 133/76 97 99.1 Lab Test 06/12/25 00:06 Range/Units White Blood Count 8.8 4.4-10.8 10^3/uL Red Blood Count 4.13 4.0-5.20 10^6/uL Hemoglobin 12.6 # 12.2-16.2 g/dL Hematocrit 37.8 # 36.0-46.0 % Mean Corpuscular Volume 91.5 80.0-100.0 fL Mean Corpuscular Hemoglobin 30.6 28.0-32.0 pg Mean Corpuscular Hemoglobin Concent 33.4 32.0-36.0 g/dL Red Cell Distribution Width 13.8 11.8-14.3 % Platelet Count 215 140-450 10^3/uL Mean Platelet Volume 10.3 6.9-10.8 fL Neutrophils (%) (Auto) 72.6 37.0-80.0 % Lymphocytes (%) (Auto) 18.0 10.0-50.0 % Monocytes (%) (Auto) 8.6 0.0-12.0 % Eosinophils (%) (Auto) 0.4 0.0-7.0 % Basophils (%) (Auto) 0.4 0.0-2.0 % Neutrophils # (Auto) 6.4 1.6-8.6 10 ^3/uL Lymphocytes # (Auto) 1.6 0.4-5.4 10 ^3/uL Monocytes # (Auto) 0.8 0-1.3 10 ^3/uL Eosinophils # (Auto) 0 0-0.8 10 ^3/uL Basophils # (Auto) 0 0-0.2 10 ^3/uL Nucleated Red Blood Cells 0.2 % Sodium Level 140 136-145 mmol/L Potassium Level 3.6 3.5-5.1 mmol/L Chloride Level 107 98-107 mmol/L Carbon Dioxide Level 24 20-31 mmol/L Anion Gap 9 5-15 Blood Urea Nitrogen 13 9-23 mg/dL Creatinine 0.62 # 0.550-1.02 mg/dL Glomerular Filtration Rate Calc 93 >90 mL/min BUN/Creatinine Ratio 21.0 H 10.0-20.0 Serum Glucose 134 H 74-106 mg/dL Calcium Level 9.2 8.7-10.4 mg/dL Magnesium Level 1.7 1.6-2.6 mg/dL Total Bilirubin 0.5 0.2-1.0 mg/dL Aspartate Amino Transferase (AST) 18 13-40 U/L Alanine Aminotransferase (ALT) 12 7-40 U/L Alkaline Phosphatase 79 46-116 U/L Total Protein 7.0 5.7-8.2 g/dL Albumin 4.2 3.2-4.8 g/dL Time of 1ST Reevaluation: 23:42 Reevaluation 1ST: Unchanged Patient Education/Counseling: Other (Patient has dementia) Family Education/Counseling: No Family Present Departure 1 Departure Time of Disposition: 02:16 Impression: Primary Impression: Head injury Additional Impressions: Scalp laceration Dementia Intracranial mass Disposition: 02 SHORT TERM HOSPITAL Admit to: Med Surg Condition: Guarded Comments 74-year-old female presents by ambulance after a ground level fall at home. Patient has a small laceration on the back of the scalp. Patient has a history of dementia and family states that the patient has been unsteady on her feet. Patient was recently discharged from the hospital for similar symptoms. I was able to irrigate and close the laceration on the scalp. CT of the head shows intracranial mass. Patient will need to be transferred for further care and workup such as MRI. CT head IMPRESSION: Small hyperdense lesion in the right cerebellum. DDX Include calcified meningioma or parenchymal hemorrhage. Recommend obtaining contrast-enhanced MRI brain for characterization. Left CPA mass. This could also be characterized by contrast-enhanced MRI brain. Mild cerebral volume loss. Critical Result: Small hemorrhage versus calcified meningioma in the right cerebellar /posterior fossa, left CPA mass. Calling ROSSI EDWARDS at 06/12/2025 02:06 AM Critical Care Note Critical Care Time?: Yes (35 min-critical care time only) Critical care comment: Total critical care time: Approximately 36 minutes Due to a high probability of clinically significant, life threatening deterioration, the patient required my highest level of preparedness to intervene emergently and I personally spent this critical care time directly and personally managing the patient. This critical care time included obtaining a history; examining the patient; pulse oximetry; ordering and review of studies; arranging urgent treatment with development of a management plan; evaluation of patient's response to treatment; frequent reassessment; and, discussions with other providers. This critical care time was performed to assess and manage the high probability of imminent, life-threatening deterioration that could result in multi-organ failure. It was exclusive of separately billable procedures and treating other patients. Stability Stability form required: No Heart Score Heart Score: Heart Score Response (Comments) Value History N/A 0 EKG N/A 0 Age N/A 0 Risk Factors N/A 0 Troponin N/A 0 Total 0 I personally scribed for ROSSI EDWARDS MD ([email or web address]) on 06/11/25 at 23:46. Electronically submitted by Daniel Tang ([email or web address]). ROSSI EDWARDS MD Jun 11, 2025 23:46
[2025-06-12 00:10] VITALS: O2SAT 98
[2025-06-12 00:26] LABS: Hematocrit 37.8 % (36.0-46.0); Hemoglobin 12.6 g/dL (12.2-16.2); Mean Corpuscular Hemoglobin 30.6 pg (28.0-32.0); Mean Corpuscular Volume 91.5 fL (80.0-100.0); Nucleated Red Blood Cells % 0.2 %
[2025-06-12 00:40] LABS: Alanine Aminotransferase 12 U/L (7-40); Albumin 4.2 g/dL (3.2-4.8); Alkaline Phosphatase 79 U/L (46-116); Anion Gap 9 (5-15); BUN/Creatinine Ratio 21.0 (10.0-20.0); Blood Urea Nitrogen 13 mg/dL (9-23); Calcium 9.2 mg/dL (8.7-10.4); Carbon Dioxide 24 mmol/L (20-31); Magnesium 1.7 mg/dL (1.6-2.6); Potassium 3.6 mmol/L (3.5-5.1); Sodium 140 mmol/L (136-145); Total Protein 7.0 g/dL (5.7-8.2)
[2025-06-12 00:41] LABS: Bilirubin, Total 0.5 mg/dL (0.2-1.0)
[2025-06-12 00:43] LABS: Chloride 107 mmol/L (98-107); Glucose 134 mg/dL (74-106)
--- NOTE | 2025-06-12 02:10 | DVH ---
CLINICAL HISTORY: head injury / pain TECHNIQUE: Helical imaging carried out from skull base to vertex without intravenous contrast. This e xam was performed according to our departmental dose optimization program. Up-to-date CT equipment an d radiation dose reduction techniques are utilized as appropriate. 50.87 CTDIVol: 50.87 mGy DLP: 900.9 mGy-cm WID: COMPARISON: None FINDINGS: Mild cerebral volume loss with concordant prominence of the subarachnoid spaces and ventricles. There is a mass in the left cerebellar pontine angle measuring 9.5 x 2.5 cm on series 2, image 18. There i s a hyperdense lesion in the right cerebellum measuring 9.6 mm on series 2, image 10. There is a calc ified meningioma along the vertex in the posterior right frontal region on series 450 image 39 There is no midline shift . The bennett white matter interfaces are maintained. The basal cisterns are patent. The mastoid air cells and visualized paranasal sinuses are well-aerated. Prior ocular lens r eplacement. IMPRESSION: Small hyperdense lesion in the right cerebellum. DDX Include calcified meningioma or parenchymal hem orrhage. Recommend obtaining contrast-enhanced MRI brain for characterization. Left CPA mass. This could also be characterized by contrast-enhanced MRI brain. Mild cerebral volume loss. Critical Result: Small hemorrhage versus calcified meningioma in the right cerebellar /posterior katherine a, left CPA mass. Calling ROSSI EDWARDS at 06/12/2025 02:06 AM ..
[2025-06-12 06:13] VITALS: BP 148/75; PULSE 74; RESP 18; TEMP 98.4; O2SAT 99
== END 2025-06-12 06:13 | disposition short-term general hospital (02) ==
LOC: EDBD 23:25 → ER 23:25
DX: S01.01XA Laceration without foreign body of scalp, initial encounter (principal); F03.90 Unspecified dementia, unspecified severity, without behavioral disturbance, psychotic disturbance, mood disturbance, and anxiety; R90.0 Intracranial space-occupying lesion found on diagnostic imaging of central nervous system; E11.9 Type 2 diabetes mellitus without complications; W06.XXXA Fall from bed, initial encounter; Y93.89 Activity, other specified; Y92.009 Unspecified place in unspecified non-institutional (private) residence as the place of occurrence of the external cause; Y99.8 Other external cause status
CPT/HCPCS: 12002; 36415; 70450; 80053; 83735; 85025